=== PATIENT | male | born 1940 | race Caucasian/White ===

== ENCOUNTER 2024-09-16 00:16 | Inpatient (IN) | payer OTHER ==
[~2024-09-16] VITALS: Ht 185.4 cm; Wt 98.4 kg
[2024-09-16] MEDS ORDERED: ONDANSETRON HCL/PF 4 MG/2 ML VIAL ONE (01:07)
[2024-09-16 01:22] LABS: BASOPHILS % (AUTO) 0.2 % (0.0-2.0); EOSINOPHILS % (AUTO) 0.1 % (0.0-6.0); HEMATOCRIT 42 % (39-51); HEMOGLOBIN 14.5 g/dL (13.5-17.5); LYMPHOCYTES # (AUTO) 0.2 K/uL (0.8-4.8); LYMPHOCYTES % (AUTO) 4.2 % (20.0-44.0); MEAN CORPUSCULAR HEMOGLOBIN 32 PG (26.0-33.0); MEAN CORPUSCULAR HGB CONC 34 g/dl (31.0-36.0); MEAN CORPUSCULAR VOLUME 92 fL (80-96); MONOCYTES # (AUTO) 0.4 K/uL (0.1-1.30); MONOCYTES % (AUTO) 6.6 % (2.0-12.0); NEUTROPHILS # (AUTO) 5.1 K/uL (1.8-8.9); NEUTROPHILS % (AUTO) 88.9 % (43.0-81.0); PLATELET COUNT (AUTO) 194 K/uL (150-450); RED BLOOD CELL COUNT(AUTO) 4.61 MIL/uL (4.5-6.0); RED CELL DISTRIBUTION WIDTH 13.7 % (11.5-15.0); WHITE BLOOD COUNT (AUTO) 5.7 K/uL (4.3-11.0)
[2024-09-16] MEDS: ONDANSETRON HCL/PF 4 MG/2 ML VIAL IVP ONE (01:30)
[2024-09-16] MEDS: IV NS 0.9% 500 ML BAG IV ONE (01:30)
[2024-09-16 01:35] LABS: ALANINE AMINOTRANSFERASE 42 U/L (12-78); ALBUMIN 3.3 g/dL (3.4-5.0); ALKALINE PHOSPHATASE 236 U/L (46-116); ASPARTATE AMINOTRANSFERASE 35 U/L (15-37); BILIRUBIN,DIRECT 0.1 mg/dL (0.0-0.2); BILIRUBIN,TOTAL 0.5 mg/dL (0.2-1.0); CALCIUM, SERUM 7.8 mg/dL (8.5-10.1); CARBON DIOXIDE 22 mmol/L (21-32); CHLORIDE 101 mmol/L (98-107); CREATININE 1.1 mg/dL (0.6-1.3); GLUCOSE 137 mg/dL (74-106); POTASSIUM 3.6 mmol/L (3.5-5.1); SODIUM SERUM 136 mmol/L (136-145); UREA NITROGEN, BLOOD 34 mg/dL (7-18)
[2024-09-16] MEDS ORDERED: ASPIRIN 325 MG TABLET ONE (01:53)
[2024-09-16] MEDS: ASPIRIN 325 MG TABLET PO ONE (01:57)
[2024-09-16] MEDS ORDERED: PANT40TA49 PO (02:57)
[2024-09-16 17:56] VITALS: O2SAT 99
[2024-09-16 19:50] VITALS: BP 127/68; TEMP 98.1; O2SAT 96
[2024-09-16] MEDS ORDERED: ONDANSETRON HCL/PF 4 MG/2 ML VIAL IV PRN (23:00)
[2024-09-16] MEDS ORDERED: MORPHINE SULFATE INJ 2 MG/ML DISP.SYRIN IV PRN (23:00)
[2024-09-16] MEDS ORDERED: MORPHINE SULFATE INJ 4 MG/ML DISP.SYRIN IV PRN (23:00)
[2024-09-17] VITALS: BP 115/59; TEMP 99.1; O2SAT 95
[2024-09-17] MEDS: ACETAMINOPHEN 325 MG TABLET PO PRN (00:10)
[2024-09-17 00:16] LABS: THYROID STIMULATING HORMONE 1.19 uIU/mL (0.358-3.74)
[2024-09-17 07:16] LABS: BASOPHILS % (AUTO) 0.5 % (0.0-2.0); EOSINOPHILS % (AUTO) 1.4 % (0.0-6.0); HEMATOCRIT 40 % (39-51); HEMOGLOBIN 13.8 g/dL (13.5-17.5); LYMPHOCYTES # (AUTO) 0.2 K/uL (0.8-4.8); LYMPHOCYTES % (AUTO) 7.1 % (20.0-44.0); MEAN CORPUSCULAR HEMOGLOBIN 31 PG (26.0-33.0); MEAN CORPUSCULAR HGB CONC 34 g/dl (31.0-36.0); MEAN CORPUSCULAR VOLUME 92 fL (80-96); MONOCYTES # (AUTO) 0.3 K/uL (0.1-1.30); MONOCYTES % (AUTO) 11.3 % (2.0-12.0); NEUTROPHILS # (AUTO) 2.3 K/uL (1.8-8.9); NEUTROPHILS % (AUTO) 79.7 % (43.0-81.0); PLATELET COUNT (AUTO) 131 K/uL (150-450); RED CELL DISTRIBUTION WIDTH 13.7 % (11.5-15.0); WHITE BLOOD COUNT (AUTO) 2.9 K/uL (4.3-11.0)
[2024-09-17 07:27] LABS: CALCIUM, SERUM 7.9 mg/dL (8.5-10.1); CREATININE 0.9 mg/dL (0.6-1.3); POTASSIUM 3.4 mmol/L (3.5-5.1)
[2024-09-17 08:00] VITALS: BP 112/61; TEMP 98.2; O2SAT 94
[2024-09-17] MEDS: ATORVASTATIN 40 MG TABLET PO SCH (08:15)
[2024-09-17] MEDS: ASPIRIN 325 MG TABLET PO SCH (08:15)
[2024-09-17] MEDS: POTASSIUM CHLORIDE 20 MEQ TAB.PRT.SR PO SCH (10:09)
[2024-09-17] MEDS ORDERED: POTASSIUM CHLORIDE 20 MEQ TAB.PRT.SR PO ONE (11:30)
[2024-09-17] MEDS: ENOXAPARIN SODIUM 40 MG/0.4 ML DISP.SYRIN SQ SCH (11:39)
[2024-09-17 20:00] VITALS: BP 126/69; TEMP 97.3; O2SAT 94
[2024-09-18] VITALS: BP 132/70; TEMP 97.9; O2SAT 97
[2024-09-18 07:42] LABS: CALCIUM, SERUM 7.9 mg/dL (8.5-10.1); CREATININE 0.9 mg/dL (0.6-1.3); POTASSIUM 3.6 mmol/L (3.5-5.1)
[2024-09-18 08:08] LABS: BASOPHILS % (AUTO) 0.4 % (0.0-2.0); EOSINOPHILS # (AUTO) 0.1 K/uL (0.0-0.7); EOSINOPHILS % (AUTO) 2.5 % (0.0-6.0); HEMATOCRIT 41 % (39-51); HEMOGLOBIN 13.9 g/dL (13.5-17.5); LYMPHOCYTES # (AUTO) 0.5 K/uL (0.8-4.8); LYMPHOCYTES % (AUTO) 17.5 % (20.0-44.0); MEAN CORPUSCULAR HEMOGLOBIN 31 PG (26.0-33.0); MEAN CORPUSCULAR HGB CONC 34 g/dl (31.0-36.0); MEAN CORPUSCULAR VOLUME 92 fL (80-96); MONOCYTES # (AUTO) 0.4 K/uL (0.1-1.30); MONOCYTES % (AUTO) 13.2 % (2.0-12.0); NEUTROPHILS % (AUTO) 66.4 % (43.0-81.0); PLATELET COUNT (AUTO) 130 K/uL (150-450); RED BLOOD CELL COUNT(AUTO) 4.42 MIL/uL (4.5-6.0); RED CELL DISTRIBUTION WIDTH 13.6 % (11.5-15.0)
[2024-09-18 08:43] VITALS: BP 116/60; TEMP 98.6; O2SAT 96
[2024-09-18 16:05] VITALS: BP 116/63; TEMP 98; O2SAT 96
[2024-09-18 16:12] VITALS: BP 119/67; TEMP 98.8; O2SAT 97
[2024-09-18 20:00] VITALS: BP 128/65; TEMP 98.2; O2SAT 94
[2024-09-19] VITALS: BP 120/69; TEMP 97.9; O2SAT 95
[2024-09-19 08:00] VITALS: BP 126/62; TEMP 99; O2SAT 96
[2024-09-19 12:00] VITALS: BP 137/64; TEMP 98; O2SAT 94
[2024-09-19] MEDS ORDERED: IOHEXOL-350 100 ML VIAL IV ONE (12:04)
[2024-09-19] MEDS ORDERED: NITROGLYCERIN 0.4 MG/TAB BOTTLE ONE (12:04)
[2024-09-19] MEDS ORDERED: IV NS 0.9% 250 ML IV ONE (12:05)
[2024-09-19] MEDS ORDERED: METOPROLOL TARTRATE INJ 5 MG/5 ML AMPUL ONE ×2 (12:05→12:41)
[2024-09-19] MEDS ORDERED: CT SWABBABLE VALVE TRANS SET 1 EA INFUS.SET MC ONE (12:05)
[2024-09-19] MEDS: METOPROLOL TARTRATE INJ 5 MG/5 ML AMPUL IVP PRN (12:30)
[2024-09-19] MEDS: NITROGLYCERIN 0.4 MG/TAB BOTTLE SL ONE (12:45)
[2024-09-19 16:00] VITALS: BP 126/67; TEMP 98.4; O2SAT 96
== END 2024-09-19 16:50 | disposition home or self-care (01) | DRG 865 ==
LOC: ER 00:29 → TRANSITION 06:21 → TELE 18:48
PROVIDERS: ADMIT Internal Medicine; ATTEND Internal Medicine
DX: B34.9 Viral infection, unspecified (principal); I21.A1 Myocardial infarction type 2; I51.4 Myocarditis, unspecified; J06.9 Acute upper respiratory infection, unspecified; Z79.899 Other long term (current) drug therapy; Z20.822 Contact with and (suspected) exposure to COVID-19; E78.5 Hyperlipidemia, unspecified; H35.3290 Exudative age-related macular degeneration, unspecified eye, stage unspecified; G47.33 Obstructive sleep apnea (adult) (pediatric); I10 Essential (primary) hypertension; Z79.82 Long term (current) use of aspirin
CPT/HCPCS: 36415; 70450-TC; 71045-TC; 75574; 80048-TC; 80061-TC; 80076-TC; 82550-TC; 84443-TC; 84484-TC; 85025-TC; 93307-TC; 94761-TC; 97112-TC; 97116-TC; 97530-TC; G0378; J1650; J2405; J3490; J7040; J7050; Q9967